=== PATIENT | female | born 1965 | race Caucasian/White ===

== ENCOUNTER 2017-01-05 10:08 | Inpatient (IN) | payer BC ==
[~2017-01-05] VITALS: Ht 160 cm; Wt 78.0 kg
--- NOTE | ~2017-01-05 | EKG ---
PATIENT: OSMEL ZALDIVAR UNIT #: [id number] Ventricular Rate: 97 BPM Atrial Rate: 97 BPM P-R Interval: 130 ms QRS Duration: 80 ms Q-T Interval: 400 ms QTC Calculation(Bezet): 508 ms P [place]: 41 degrees Calculated R [place]: -5 degrees Calculated T [place]: 47 degrees Diagnosis Line: Normal sinus rhythm Diagnosis Line: Prolonged QT Diagnosis Line: Abnormal ECG Diagnosis Line: No previous ECGs available Diagnosis Line: Confirmed by HODAN RIVERA MD ([id number]) on 01/05/2017 Diagnosis Line: 7:40:04 PM INTERPRETING MD: NICOLE CHAIDEZ
--- NOTE | ~2017-01-05 | DS ---
Unit #: [id number] #: [id number] Patient: OSMEL BARKER [id number] [address] [address] [id number] I MR#: [id number] NAME: OSMEL BARKER ROOM: 46 Age: 51 Sex: F Admission Date: 01/05/2017 : 1965 Discharge Date: 01/08/2017 Attending Physician: Debra Paris M.D. Primary Care Physician: Isabela Hsu M.D. DISCHARGE SUMMARY FINAL DIAGNOSIS 1. Intentional drug overdose with benzodiazepine. SECONDARY DIAGNOSES 1. Depression. 2. Diabetes. CONSULTS 1. [facility]. 2. Pulmonary, Dr. Gregg. HOSPITAL COURSE Patient is a 51-year-old female who was admitted on account of intentional drug overdose. She seemed to have overdosed on benzodiazepines. She was intubated and managed in the ICU and seen by critical care. She was seen by (1) . She was eventually extubated, and her respiratory status improved. She was then seen and evaluated for transfer to [facility] inpatient rehab. They did not feel that she was a candidate and was set up for outpatient treatment. MEDICATIONS Medications on discharge include: 1. Brintellix 20 mg p.o. daily. 2. Fluconazole 50 mg p.o. q. every other day. 3. Yuvafem 1 vaginal tablet once a week. 4. Humibid LA 600 mg p.o. twice a day. 5. Multivitamin 1 tablet p.o. daily. 6. Robitussin 1 mL every 6 hours as needed. 7. Farxiga 10 mg p.o. daily. 8. She was offered a pneumonia vaccination prior to discharge. DISCHARGE PLAN She was discharged in stable condition with outpatient followup with psych, as well as her primary care provider, in about 3-5 days. NOTE: Time spent coordinating discharge was about 25 minutes. Dictated by... Masood Patel M.D. JELLY/elmo TD: 01/09/2017 09:48 Unit #: [id number] #: [id number] Patient: OSMEL BARKER JOB #: [id number] DISCHARGE SUMMARY Page 1 of 1 X Masood Patel MD DISCHARGE SUMMARY
--- NOTE | ~2017-01-05 | CR6 ---
[facility] A Service of [facility] RADIOLOGY TEXT RESULTS PATIENT: OSMEL BARKER LOCATION: [address] : [birth year] UNIT #: [id number] AGE: [address]: Lara Kwan MD SEX: F ORDER DR: [id number] [facility] [address] [facility]. [place], [place] [address] [id number] I MR#: [id number] Acc #: [id number] NAME: OSMEL BARKER : 1965 SEX: F STUDY DATE/TIME: 01/05/2017 10:45 UNIT: [facility] ROOM: [facility] STUDY DESCRIPTION: CR Abdomen Portable Sng View Attending Physician: Lara Kwan M.D. Ordering Physician: Yesica López M.D. Primary Care Physician: Isabela Hsu M.D. MEDICAL IMAGING REPORT This report is preliminary unless electronic signature is present EXAM Abdomen, single view; 01/22/2017, 1045 hours. CLINICAL HISTORY Tube placement today, mental status changes suspected overdose in ER requiring intubation. COMPARISON Chest film, 01/05/2017. FINDINGS Single supine view of the abdomen demonstrates a nasogastric tube with tip in the left upper quadrant in the proximal stomach. Bowel gas pattern is unremarkable. There is a calcification overlying the right kidney measuring 10 mm likely an intrarenal nonobstructing stone. IMPRESSION 1. Nasogastric tube tip is in the proximal stomach with the tip directed leftward in the left upper quadrant. Bowel gas pattern is nonspecific. 2. 10 mm calcification overlying the right kidney likely a nonobstructing stone in the lower pole. Dictated by... Aniyah Quinteros M.D. THIS IS AN ELECTRONICALLY VERIFIED REPORT Aniyah Quinteros M.D. at 01/06/2017 9:15 AM ROOPA/kalyn TD: 01/05/2017 16:09 JOB #: [id number] [facility] A Service of [facility] RADIOLOGY TEXT RESULTS PATIENT: OSMEL BARKER LOCATION: [facility] CICCU3-14 : 67 UNIT #: [id number] AGE: [address]: Lara Kwan MD SEX: F ORDER DR: MEDICAL IMAGING REPORT Page 1 of 1 COPY
--- NOTE | ~2017-01-05 | CT71 ---
[facility] A Service of [facility] RADIOLOGY TEXT RESULTS PATIENT: OSMEL BARKER LOCATION: [address] : [birth year] UNIT #: [id number] AGE: [address]: Debra Paris MD SEX: F ORDER DR: [id number] [facility]. [place], [place] [address] [id number] I MR#: [id number] Acc #: [id number] NAME: OSMEL BARKER : 1965 SEX: F STUDY DATE/TIME: 01/05/2017 11:06 UNIT: [facility] ROOM: [facility] STUDY DESCRIPTION: CT Head Wo Contrast Attending Physician: Lara Kwan M.D. Ordering Physician: Yesica López M.D. Primary Care Physician: Isabela Hsu M.D. MEDICAL IMAGING REPORT This report is preliminary unless electronic signature is present EXAM Noncontrast head CT. HISTORY Suspected overdose. Two empty bottles of Xanax at patient's side, respiratory distress, unresponsive. TECHNIQUE This CT exam was performed with one or more of the following radiation dose reduction techniques: automatic exposure control, adjustment of mA and/or kV according to patient size, and iterative reconstruction. FINDINGS Axial noncontrast imaging of the brain demonstrates the brain parenchyma to be normal. No mass, mass effect or midline shift. No hemorrhage or abnormal extraaxial fluid collections. Trace amount calcification seen in the left basal ganglia. Bony calvaria, skull base, mastoids unremarkable. Minimal ethmoid sinus mucosal disease. IMPRESSION No acute intracranial abnormality identified. Dictated by... Renetta Miranda M.D. THIS IS AN ELECTRONICALLY VERIFIED REPORT Renetta Miranda M.D. at 01/06/2017 2:34 PM Gena TD: 01/05/2017 17:23 JOB #: [id number] [facility] A Service of [facility] RADIOLOGY TEXT RESULTS PATIENT: OSMEL BARKER [address] [birth year] UNIT #: [id number] AGE: [address]: Debra Paris MD SEX: F ORDER DR: MEDICAL IMAGING REPORT Page 1 of 1 COPY
--- NOTE | ~2017-01-05 | CO ---
Unit #: [id number] #: [id number] Patient: OSMEL BARKER [id number] [place], [place] [address] [id number] I MR#: [id number] NAME: OSMEL BARKER [facility] Age: 51 Sex: F Admission Date: 01/05/2017 : 1965 Attending Physician: Debra Paris M.D. Primary Care Physician: Jessica Hsu Consultation Date: 01/06/2017 CONSULTATION REPORT REASON FOR CONSULTATION Overdose. HISTORY OF PRESENT ILLNESS Ms. Murrieta is a 51-year-old white female, seen in room CCU-3, bed 14 on 01/06/2017 at [facility]. The patient was admitted after taking an overdose intentional. The patient was admitted in altered mental status. The patient has a history of depression, alcohol abuse. The patient dressed in hospital attire, lying in bed, somewhat uncomfortable, anxious, nervous, unable to give any reliable information. Information obtained from nursing staff, chart reviewed. The patient was able to give some information, but somewhat confused. The patient has a history of depression. The patient's urine tox was positive for benzodiazepine and marijuana, alcohol level negative. PAST PSYCHIATRIC HISTORY Remarkable for history of depression. MEDICAL HISTORY Remarkable for diabetes. MEDICATION HISTORY Trintellix and Farxiga. ALLERGIES No known drug allergies. FAMILY HISTORY AND SOCIAL HISTORY The patient has a good support system. She lives with her . The patient is a daily drinker and has been in rehab in the past. History of use of marijuana. REVIEW OF SYSTEMS Complete review of system is unremarkable except as mentioned above. MENTAL STATUS EXAMINATION The patient's vital signs; pulse 99, respirations 18, blood pressure 119/72, and oxygen saturation 96%. General appearance, the patient dressed casually in hospital attire, somewhat restless, anxious, confused. Attention span and concentration, poor. Speech, slow in volume. Orientation in self. Mood and affect, labile. Thought process, circumstantial. Thought content, guarded, recent suicide attempt by taking overdose. Recent and remote memory, poor. Language, poor. Fund of knowledge, poor. Insight and judgment, impaired. Unit #: [id number] #: [id number] Patient: OSMEL BARKER DIAGNOSES Psychiatric: Major depressive disorder, recurrent, severe, F33.2; delirium, F05; alcohol use disorder, severe, F10.20; cannabis abuse, moderate, F12.20. Secondary diagnosis: Deferred. Medical diagnosis: Please refer to H and P. Stressors: Psychosocial stressors. ASSESSMENT/PLAN Supportive psychotherapy and psychoeducation provided to the patient, but the patient unable to comprehend much at this time. Continue with sitter and one-to-one monitoring. Plan to stabilize the patient and consider transferring the patient to [facility] for inpatient psychiatric treatment. Please feel free to call if any question, telephone #[phone]. Dictated by... Lluvia Lopez/gera TD: 01/06/2017 19:47 JOB #: [id number] CONSULTATION REPORT Page 1 of 1 X Wilner Najera MD X CONSULTATION REPORT
--- NOTE | ~2017-01-05 | CO ---
Unit #: [id number] #: [id number] Patient: NITA BARKER [id number] [address] [address] [id number] I MR#: [id number] NAME: NITA BARKER ROOM: 464 Age: 51 Sex: F Admission Date: 01/05/2017 : 1965 Attending Physician: Debra Paris M.D. Primary Care Physician: Jessica Hsu Consultation Date: 01/08/2017 CONSULTATION REPORT REASON FOR CONSULTATION Followup. DISCUSSION Ms. Nita Barker is a 51-year-old white female, seen in room 464, bed 1 on 01/08/2017 at [facility]. The patient is casually lying comfortably in bed in a propped up position. The patient has a sitter. The patient is still feeling sad, depressed and suicide attempt by taking overdose. The patient is agreeable to go to inpatient treatment at this time [facility] [place] The patient's vital signs; temperature 98.2, pulse 78, respiratory rate 16, blood pressure 107/51, oxygen saturation 96%. REVIEW OF SYSTEMS Complete review of systems is unremarkable. MENTAL STATUS EXAMINATION General appearance, the patient dressed casually, lying comfortably in bed. Attention span and concentration, fair. Speech, regular rate and coherent. Oriented in time, place, and person. Mood and affect, sad and dysphoric. Thought process, goal directed. The patient was somewhat guarded. Able to contract for safety, but passive SI. Denied any homicidal ideation or psychosis. Recent and remote memory, fair. Language, intact. Fund of knowledge, fair. Insight and judgment, fair to slightly impaired. DIAGNOSIS Psychiatric: Major depressive disorder, recurrent, severe, F33.2. ASSESSMENT/PLAN 1. Supportive psychotherapy and psychoeducation provided to the patient. 2. Educated about benefits and side effects of medication and course and prognosis of illness. 3. Advised to continue with current treatment, sitter, and hold and transfer the patient [place] [facility] as soon as the patient is medically stable. Dictated by... Wilner Najera M.D. FARHEEN/gera TD: 01/08/2017 23:07 Unit #: [id number] #: [id number] Patient: NITA BARKER JOB #: [id number] CONSULTATION REPORT Page 1 of 1 X Wilner Naejra MD CONSULTATION REPORT
--- NOTE | ~2017-01-05 | CO ---
Unit #: [id number] #: [id number] Patient: OSMEL BARKER [id number] [facility]. [place], [place] [address] [id number] I MR#: [id number] NAME: OSMEL BARKER ROOM: [facility] Age: 51 Sex: F Admission Date: 01/05/2017 : 1965 Attending Physician: Debra Paris M.D. Primary Care Physician: Isabela Hsu M.D. Consultation Date: 01/07/2017 CONSULTATION REPORT REASON FOR CONSULTATION Followup. DISCUSSION The patient is a 51-year-old white female, seen in CCU-3, bed 14 on 01/07/2017 at [facility]. The patient was more alert, awake, sitting comfortably in a recliner, receiving oxygen, dressed in hospital attire. The patient was pleasant, cooperative, admitted still feeling sad, depressed, and was admitted after intentional overdose. The patient's mood is still sad, depressed, passive SI. Denied any hallucination. The patient is cooperative. Vital signs; temperature 98.6, pulse 101, respiratory rate 20, blood pressure 127/67, oxygen saturation 95%. The patient will be transferred out to a med/surg floor today if continues to do well. REVIEW OF SYSTEMS Complete review of systems is unremarkable. MENTAL STATUS EXAMINATION General appearance, the patient dressed casually in hospital attire, sitting in a recliner. Attention span and concentration, fair. Speech, slow in volume. Oriented in place and person. Mood and affect, sad, dysphoric, flat. Thought process, coherent. Thought content, the patient denied any thoughts of harming others or any hallucination, but passive SI. Recent and remote memory, fair. Language, intact. Fund of knowledge, fair. Insight and judgment, fair to slightly impaired. DIAGNOSES Psychiatric: Major depressive disorder, recurrent, severe; delirium, F05, resolved; alcohol use disorder, severe, F10.20; cannabis abuse, moderate, F12.20. ASSESSMENT/PLAN 1. Supportive psychotherapy and psychoeducation provided to the patient. 2. Educated about benefits and side effects of medication and course and prognosis of illness. 3. Advised to continue with current treatment with a plan to transfer the patient to [facility] [place] [facility] once the patient is medically stable. Continue with the sitter and 72-hour hold. Please feel free to call if any questions, telephone # . Dictated by... Wilner Najera M.D. Unit #: [id number] #: [id number] Patient: OSMEL BARKER FARHEEN/modl TD: 01/08/2017 23:28 JOB #: [id number] CONSULTATION REPORT Page 1 of 1 X Wilner Najera MD X CONSULTATION REPORT
--- NOTE | ~2017-01-05 | HP ---
Unit #: [id number] #: [id number] Patient: OSMEL BARKER [id number] [address] [place], [place] [address] [id number] I MR#: [id number] NAME: OSMEL BARKER ROOM: 41338 Age: 51 Sex: F Admission Date: 01/05/2017 : 1965 Attending Physician: Lara Kwan M.D. Primary Care Physician: Isabela Hsu M.D. HISTORY AND PHYSICAL CHIEF COMPLAINT Altered mental status. HISTORY OF PRESENT ILLNESS The patient is a 51-year-old female with a past medical history of alcohol abuse, depression, diabetes, who presented to the emergency department via EMS for evaluation of the above. History is obtained from chart review and discussion with ER staff, as well as from the patient's who is at bedside. The patient was last seen normal by her in the evening of January 03, 2017. He apparently leaves for work around 4 a.m. and then had other commitments yesterday evening. When he returned home around 9:15, he stated that she was "snoring." He then went to sleep. This morning, he found her unresponsive around 8:00. He states that he is prescribed Xanax 0.5 mg b.i.d. This prescription is kept in a locked container due to the patient's son being a "drug addict." The states that the patient had to have removed the medication from the locked safe and taken it intentionally. He states that she has had depression for 20 years but never had a suicide attempt in the past. She had reportedly called in sick to work on Tuesday and Tuesday. Upon EMS arrival, the patient was nasally intubated for airway protection. She was given 3 mg of Narcan with no response. Upon arrival in the emergency department, she was orotracheally intubated. Pulse was 105, respirations 24, and blood pressure 160/110. A chest x-ray was done and showed a left lobe infiltrate. She was given 2 liters of normal saline, as well as Zosyn and tobramycin. She is currently on propofol drip. She is being admitted to [facility] for evaluation and further treatment. PAST MEDICAL HISTORY 1. Depression with no prior history of suicide attempt. 2. Diabetes. PAST SURGICAL HISTORY Breast reduction. SOCIAL HISTORY The patient lives with her . She is a daily drinker and has been in rehab in the past. She drinks bourbon typically multiple drinks daily. She also smokes marijuana. 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. Unit #: [id number] #: [id number] Patient: OSMEL BARKER FAMILY HISTORY Notable for her mother having COPD. ALLERGIES No known allergies. HOME MEDICATIONS 1. Trintellix. 2. Farxiga. Home medications will need to be reviewed and verified. REVIEW OF SYSTEMS A complete review of systems is unobtainable from the patient but negative except as indicated in the HPI per family. PHYSICAL EXAMINATION VITAL SIGNS: Temperature is 97.7, pulse 105, respirations 24, blood pressure 160/110, oxygen saturation 100%. GENERAL: The patient is currently intubated and sedated. HEENT: Head is atraumatic. Mucous membranes are moist. NECK: Supple. Trachea is midline. CARDIOVASCULAR: Regular rate and rhythm. LUNGS: Scattered rhonchi. ABDOMEN: Soft with bowel sounds present in all four quadrants. EXTREMITIES: No pedal edema. NEUROLOGIC: The patient is currently sedated. PSYCHIATRIC: Unable to assess. SKIN: Skin of examined areas is warm and dry. DIAGNOSTIC STUDIES LABORATORY: Arterial blood gas shows a pH of 7.283, PCO2 of 44.3, and PO2 of 83.4 on assist control with an FIO2 of 75%. INR is 1.2. Complete blood count notable for hemoglobin and hematocrit of 11.1 and 36.3, respectively, MCV is 71, and RDW is 21.5. Troponin is less than 0.05. Urinalysis notable for greater than 1000 glucose and trace ketones. Lactic acid 2.1. Comprehensive metabolic panel notable for a glucose of 159, AST and ALT are 169 and 127, respectively, alkaline phosphatase 137. CPK is 520. Magnesium is 2. Tylenol, salicylate, and alcohol levels are negative. Urine tox screen is positive for benzodiazepines and marijuana. TSH is 0.42. IMAGING: Chest x-ray shows left lower lobe infiltrate. Abdominal x-ray shows NG tube in the proximal stomach. CT of the head shows nothing acute. CARDIOLOGY: EKG shows normal sinus rhythm with a rate of 97 beats per minute. ASSESSMENT The patient is a 51-year-old female with: 1. Intentional overdose, Xanax. The bottle contained 60 pills. It is unclear how many she actually took. 2. Aspiration pneumonia. The patient received Zosyn and tobramycin in the emergency department. 3. Sepsis with initial lactic acid of 2.1. 4. Early rhabdomyolysis with a CPK of 520. 5. Transaminitis with AST and ALT of 169 and 127, respectively. 6. Alcohol abuse with history of daily drinking. Unit #: [id number] #: [id number] Patient: OSMEL BARKER 7. Microcytic anemia. The patient's hemoglobin is 11.1 with no baseline for comparison. 8. Depression. 9. Diabetes. PLAN 1. Admit to ICU. 2. N.p.o. 3. 72-hour hold and sitter when/if extubated/awake. 4. Consult Dr. Najera regarding intentional overdose. 5. Blood cultures x2. 6. Sputum culture and sensitivity. 7. Procalcitonin level. 8. Sepsis protocol. 9. Consult Dr. Piter Luke regarding ICU and vent management. 10. DuoNebs q.4 hours. 11. Alcohol withdrawal protocol to start now. 12. Hemoglobin A1c. 13. Low-dose sliding scale insulin with Accu-Cheks. 14. Propofol drip per sedation protocol. 15. Serial cardiac enzymes. 16. Protonix for GI prophylaxis. 17. SCDs for DVT prophylaxis. 18. Repeat labs in the morning including CPK. Thirty-five (35) minutes critical care time spent in the care of this patient (12:05 to 12:40 p.m.). Dictated by Lluvia Patrick/yessica TD: 01/05/2017 15:05 JOB #: [id number] HISTORY AND PHYSICAL Page 1 of 1 X Lara Kwan MD HISTORY AND PHYSICAL
--- NOTE | ~2017-01-05 | CO ---
Unit #: [id number] #: [id number] Patient: OSMEL BARKER [id number] [address] [address] [id number] I MR#: [id number] NAME: OSMEL BARKER ROOM: [facility] Age: 51 Sex: F Admission Date: 01/05/2017 : 1965 Attending Physician: Debra Paris M.D. Primary Care Physician: Isabela Hsu M.D. Consultation Date: 01/05/2017 CONSULTATION REPORT REASON FOR CONSULT ICU management. HISTORY OF PRESENT ILLNESS This is a 51-year-old female with past medical history significant for depression, diabetes, alcohol abuse who presented to the emergency room for evaluation of altered mental status and drug overdose. Patient's has stated that when he left to work, she was doing okay; however, when he came back, she was sleeping deeply and she was snoring. Patient was unresponsive and not following commands. Apparently patient had never had suicidal attempt in the past. PAST MEDICAL HISTORY 1. Depression. 2. Diabetes. 3. Morbid obesity. PAST SURGICAL HISTORY 1. Breast reduction. SOCIAL HISTORY Patient lives with her . She is a daily drinker and has been in rehab in the past. She drinks bourbon (1) multiple drinks daily. She also smokes marijuana. FAMILY HISTORY COPD. ALLERGY No known drug allergy. HOME MEDICATION 1. Trintellix. 2. Farxiga. REVIEW OF SYSTEMS Unable to obtain due to patient condition. PHYSICAL EXAMINATION VITAL SIGNS: Temperature 98.1, heart rate 96, respiratory rate 20, O2 saturation 98%. HEENT: Atraumatic, normocephalic. PERRLA, EOMI. NECK: Supple. No JVD. No lymphadenopathy. Unit #: [id number] #: [id number] Patient: OSMEL BARKER CHEST: Clear to auscultation bilaterally. HEART: S1, S2. No murmur, gallops or rubs. ABDOMEN: Soft, nontender. Bowel sound is positive. No hepatosplenomegaly. EXTREMITIES: No edema or cyanosis. SKIN: No rashes. RING ATTACHER: Patient is intubated with propofol as sedation. She is withdrawing to painful stimuli, and she has a gag and cough reflexes. LABS AND OTHER TESTS LABS: Creatinine 0.5, potassium 3.1, CO2 23. White blood count 9.0, hemoglobin 10.4. ASSESSMENT 1. Acute hypoxic respiratory failure. 2. Drug overdose. 3. Altered mental status. 4. Chronic anemia. 5. Morbid obesity. 6. Diabetes. PLAN 1. Patient will be continued on the vent with attempt for spontaneous breathing trial as soon as she is more awake. 2. IV hydration with close monitoring of urine output and lactic acid. 3. Zosyn for possible aspiration pneumonia but hopefully will deescalate as soon as we get culture and procalcitonin back. 4. Sliding scale and blood sugar management. 5. DVT/GI prophylaxis. 6. Discussed with the family prognosis and what to expect for the next 24 hours. NOTE: I would like to thank you for allowing me to be part of this patient's care. Dictated by... Lluvia Ahmadi TD: 01/07/2017 07:49 JOB #: [id number] CONSULTATION REPORT Page 1 of 1 X LAKSHMI VILLA MD X CONSULTATION REPORT
--- NOTE | ~2017-01-05 | CR72 ---
[facility] A Service of [facility] & [facility] RADIOLOGY TEXT RESULTS PATIENT: OSMEL BARKER LOCATION: [address] : [birth year] UNIT #: [id number] AGE: [address]: Debra Paris MD SEX: F ORDER DR: [id number] [facility] [address] [place], [place] [address] [id number] MR#: [id number] #: [id number] NAME: OSMEL BARKER : 1965 SEX: F STUDY DATE/TIME: 01/05/2017 10:47 UNIT: [facility] ROOM: [facility] STUDY DESCRIPTION: CR Chest Single View Portable Attending Physician: Lara Kwan M.D. Ordering Physician: Yesica López M.D. Primary Care Physician: Isabela Hsu M.D. MEDICAL IMAGING REPORT This report is preliminary unless electronic signature is present EXAM Single view of the chest dated 01/05/2017. COMPARISON None. HISTORY Dobbhoff tube placement, intubation today. Suspected overdose. FINDINGS Single view of the chest was obtained. Tip of the endotracheal tube is about 1.2 cm from the julia. NG tube tip is in the region of the mid body of the stomach. Poor inspiratory film with patchy alveolar infiltrate in the lateral left lower lung zone. Minimal associated left-sided pleural fluid cannot be excluded. No pneumothorax. Heart and bones are unremarkable. Dictated by... Ba Garcia M.D. THIS IS AN ELECTRONICALLY VERIFIED REPORT Ba Garcia M.D. at 01/06/2017 2:50 PM CPR/gz TD: 01/05/2017 15:59 JOB #: [id number] MEDICAL IMAGING REPORT Page 1 of 1 COPY
[2017-01-05 10:53] LABS: ARTERIAL BLD GAS O2 SATURATION 93.1 % (90.0-100.0); ARTERIAL BLOOD GAS CARBOXY HB 1.1 %sat (0.0-9.0); ARTERIAL BLOOD GAS HCO3 20.9 mmol/L; ARTERIAL BLOOD GAS MET HB 0.9 %sat (0.0-2.0); ARTERIAL BLOOD GAS PCO2 44.3 mmHg (35.0-45.0); ARTERIAL BLOOD GAS PO2 83.4 mmHg (80.0-100); ARTERIAL BLOOD GAS pH 7.283 (7.350-7.450)
[2017-01-05 10:54] LABS: ARTERIAL BLOOD GAS ART SITE LEFT RADIAL; ARTERIAL BLOOD GAS DELIVERY VENT; ARTERIAL BLOOD GAS VENT MODE AC; ARTERIAL DRAW? YES
[2017-01-05 11:00] LABS: BASOPHIL# 0.1 X10e3 (0-0.3); BASOPHIL% 0.9 % (0-2.5); DIFF IND NO; EOSINOPHIL% 0.2 % (0.0-7.0); HEMATOCRIT 36.3 % (35.0-45.0); HEMOGLOBIN 11.1 gm/dL (12.0-16.0); INR 1.2; LYMPHOCYTE# 1.7 X10e3 (1.0-3.5); LYMPHOCYTE% 20.1 % (17.0-45.0); MEAN CORPUSCULAR HEMOGLOBIN 21.8 PG (28-34); MEAN CORPUSCULAR HGB CONC 30.7 g/dL (30-36); MEAN PLATELET VOLUME 8.5 FL (6.5-11.5); MONOCYTE# 0.4 X10e3 (0-1.0); MONOCYTE% 4.9 % (3.0-12.0); NEUTROPHIL# 6.1 X10e3 (1.5-7.1); NEUTROPHIL% 73.9 % (40-75); PARTIAL THROMBOPLASTIN TIME 23.8 SECONDS (23.5-31.3); PLATELET COUNT 242 X10e3 (140-420); PROTHROMBIN TIME (PATIENT) 12.6 SECONDS (10.0-11.7); RED BLOOD COUNT 5.11 X10e (3.90-5.30); RED CELL DISTRIBUTION WIDTH 21.5 % (11.0-15.5); WHITE BLOOD COUNT 8.3 X10e3 (4.0-10.5)
[2017-01-05 11:01] LABS: URINE SOURCE CATH
[2017-01-05 11:03] LABS: POC - TROPONIN <0.05 ng/mL (<=0.05)
[2017-01-05 11:06] LABS: URINE APPEARANCE CLEAR; URINE BILIRUBIN NEG (NEG); URINE BLOOD NEG (NEG); URINE COLOR YELLOW; URINE GLUCOSE >1000 MG/DL (NEG); URINE KETONE TRACE (NEG); URINE LEUKOCYTE ESTERASE NEG (NEG); URINE NITRATE NEG (NEG); URINE PH 5.5 (5-8); URINE PROTEIN NEG (NEG); URINE UROBILINOGEN 0.2 MG/DL (NEG)
[2017-01-05 11:11] LABS: CULTURE INDICATED? NO
[2017-01-05 11:12] LABS: ACETAMINOPHEN <10 ug/mL; ALBUMIN SERUM 4.1 g/dL (3.5-5.0); ALCOHOL BLOOD <5 mg/dL (0); ALKALINE PHOSPHATASE 137 U/L (32-92); ALT (SGPT) 127 U/L (10-40); AST (SGOT) 169 U/L (10-42); BILIRUBIN, DIRECT 0.1 mg/dL (0.0-0.2); BILIRUBIN,INDIRECT 0.7 mg/dL (0.0-0.9); BILIRUBIN,TOTAL 0.8 mg/dL (0.2-2.0); BLOOD UREA NITROGEN 11 mg/dL (9-23); BUN/CREATININE RATIO 15.71; CALCIUM SERUM 8.6 mg/dL (8.4-10.2); CARBON DIOXIDE 22 mmol/L (22-31); CHLORIDE 109 mmol/L (100-111); CPK (CREATINE PHOSPHOKINASE) 520 IU/L (26-140); CREATININE SERUM 0.7 mg/dL (0.6-1.4); GLUCOSE FASTING 159 mg/dL (70-110); POTASSIUM 3.6 mmol/L (3.5-5.1); PROTEIN TOTAL SERUM 7.8 g/dL (6.0-8.3); SALICYLATE <4.0 mg/dL; SODIUM 141 mmol/L (135-145)
[2017-01-05 11:16] LABS: AMPHETAMINE NEG (NEG); BARBITURATES NEG (NEG); BENZODIAZEPINES POS (NEG); COCAINE NEG (NEG); MARIJUANA POS (NEG); OPIATES NEG (NEG); TRICYCLIC ANTIDEPRESSANTS NEG (NEG); U METHADONE NEG (NEG)
[2017-01-05] MEDS ORDERED: PATIENT'S PHARMACY (12:36)
[2017-01-05] MEDS ORDERED: AMOXICILLIN PO (12:37)
[2017-01-05] MEDS ORDERED: BRINTELLIX20 MG PO (12:37)
[2017-01-05 12:38] LABS: POC - CKMB 3.6 ng/mL (0.0-7.9); POC - TROPONIN <0.05 ng/mL (<=0.05)
[2017-01-05] MEDS ORDERED: YUVAFEM10 MCG VAG (12:38)
[2017-01-05] MEDS ORDERED: FARXIGA10 MG PO (12:38)
[2017-01-05] MEDS ORDERED: FLUCONAZOLE150 M1 PO (12:39)
[2017-01-05 13:27] LABS: MAGNESIUM 2.1 mg/dL (1.6-3.0)
[2017-01-05 14:22] LABS: PROCALCITONIN <0.05 NG/ML
[2017-01-05 19:18] LABS: %MB 0.7 % (0.0-4.0); MB 3.8 ng/ml
[2017-01-06 01:15] LABS: %MB 0.7 % (0.0-4.0); MB 2.7 ng/ml
[2017-01-06 05:17] LABS: BASOPHIL% 0.5 % (0-2.5); EOSINOPHIL# 0.1 X10e3 (0-0.7); EOSINOPHIL% 0.9 % (0.0-7.0); HEMATOCRIT 34.1 % (35.0-45.0); HEMOGLOBIN 10.4 gm/dL (12.0-16.0); LYMPHOCYTE# 2.3 X10e3 (1.0-3.5); LYMPHOCYTE% 25.8 % (17.0-45.0); MEAN CORPUSCULAR HEMOGLOBIN 21.7 PG (28-34); MEAN CORPUSCULAR HGB CONC 30.6 g/dL (30-36); MEAN PLATELET VOLUME 8.7 FL (6.5-11.5); MONOCYTE# 0.9 X10e3 (0-1.0); MONOCYTE% 9.4 % (3.0-12.0); NEUTROPHIL# 5.7 X10e3 (1.5-7.1); NEUTROPHIL% 63.4 % (40-75); PLATELET COUNT 185 X10e3 (140-420); RED CELL DISTRIBUTION WIDTH 21.5 % (11.0-15.5)
[2017-01-06 05:25] LABS: DIFF IND NO
[2017-01-06 06:52] LABS: ALBUMIN SERUM 3.3 g/dL (3.5-5.0); BILIRUBIN,TOTAL 0.9 mg/dL (0.2-2.0); CALCIUM SERUM 7.8 mg/dL (8.4-10.2); CREATININE SERUM 0.5 mg/dL (0.6-1.4); GLOM FILT RATE Estimated 112.9 mL/min (>60); MAGNESIUM 1.7 mg/dL (1.6-3.0); POTASSIUM 3.4 mmol/L (3.5-5.1); PROTEIN TOTAL SERUM 6.5 g/dL (6.0-8.3)
[2017-01-07 05:47] LABS: BASOPHIL# 0.1 X10e3 (0-0.3); BASOPHIL% 0.8 % (0-2.5); EOSINOPHIL# 0.3 X10e3 (0-0.7); HEMOGLOBIN 9.3 gm/dL (12.0-16.0); LYMPHOCYTE# 2.6 X10e3 (1.0-3.5); LYMPHOCYTE% 38.6 % (17.0-45.0); MEAN CELL VOLUME 70.9 FL (83-96); MEAN CORPUSCULAR HEMOGLOBIN 21.4 PG (28-34); MEAN CORPUSCULAR HGB CONC 30.1 g/dL (30-36); MEAN PLATELET VOLUME 8.6 FL (6.5-11.5); MONOCYTE# 0.5 X10e3 (0-1.0); MONOCYTE% 6.8 % (3.0-12.0); NEUTROPHIL# 3.3 X10e3 (1.5-7.1); NEUTROPHIL% 49.8 % (40-75); PLATELET COUNT 181 X10e3 (140-420); RED BLOOD COUNT 4.37 X10e (3.90-5.30); RED CELL DISTRIBUTION WIDTH 21.1 % (11.0-15.5); WHITE BLOOD COUNT 6.7 X10e3 (4.0-10.5)
[2017-01-07 05:50] LABS: DIFF IND NO
[2017-01-07 06:10] LABS: CALCIUM SERUM 7.5 mg/dL (8.4-10.2); CARBON DIOXIDE 24 mmol/L (22-31); CHLORIDE 106 mmol/L (100-111); CREATININE SERUM 0.5 mg/dL (0.6-1.4); GLOM FILT RATE Estimated 112.9 mL/min (>60); GLUCOSE FASTING 154 mg/dL (70-110); SODIUM 133 mmol/L (135-145)
[2017-01-07 06:12] LABS: BLOOD UREA NITROGEN <5 mg/dL (9-23)
[2017-01-07 06:13] LABS: ALBUMIN SERUM 3.1 g/dL (3.5-5.0); BILIRUBIN, DIRECT 0.3 mg/dL (0.0-0.2); BILIRUBIN,INDIRECT 0.8 mg/dL (0.0-0.9); BILIRUBIN,TOTAL 1.1 mg/dL (0.2-2.0); POTASSIUM 2.9 mmol/L (3.5-5.1); PROTEIN TOTAL SERUM 5.9 g/dL (6.0-8.3)
[2017-01-08 00:09] LABS: MAGNESIUM 1.7 mg/dL (1.6-3.0); POTASSIUM 3.5 mmol/L (3.5-5.1)
[2017-01-08] MEDS ORDERED: HUMIBID-LA600 MG PO (18:07)
[2017-01-08] MEDS ORDERED: TYLENOL325 M1 PO (18:07)
[2017-01-08] MEDS ORDERED: ROBITUSSIN LON118 ML PO (18:09)
== END 2017-01-08 19:05 | disposition home or self-care (01) | DRG 917 ==
LOC: CED 10:08 → CICCU3 12:40 → CEDOF 12:40 → CED 12:55 → CICCU3 15:35 → CEDOF 15:35 → CICCU3 01-06 12:49 → C4C 01-07 14:53
PROVIDERS: Emergency Medicine; Family Medicine; Internal Medicine; Internal Medicine Pulmonary Disease
PROC: 0BH17EZ Insertion of Endotracheal Airway into Trachea, Via Natural or Artificial Opening (ICD-10-PCS; principal; 2017-01-05)
PROC: 5A1935Z Respiratory Ventilation, Less than 24 Consecutive Hours (ICD-10-PCS; 2017-01-05)
PROC: 3E0234Z Introduction of Serum, Toxoid and Vaccine into Muscle, Percutaneous Approach (ICD-10-PCS; 2017-01-05)
DX: T42.4X2A Poisoning by benzodiazepines, intentional self-harm, initial encounter (principal); J69.0 Pneumonitis due to inhalation of food and vomit; A41.9 Sepsis, unspecified organism; G92 Toxic encephalopathy; F33.2 Major depressive disorder, recurrent severe without psychotic features; E44.0 Moderate protein-calorie malnutrition; F05 Delirium due to known physiological condition; M62.82 Rhabdomyolysis; E11.9 Type 2 diabetes mellitus without complications; D64.9 Anemia, unspecified; F10.20 Alcohol dependence, uncomplicated; Z79.84 Long term (current) use of oral hypoglycemic drugs; F12.20 Cannabis dependence, uncomplicated; R74.0 Nonspecific elevation of levels of transaminase and lactic acid dehydrogenase [LDH]; Z23 Encounter for immunization; E87.6 Hypokalemia; J20.9 Acute bronchitis, unspecified
CPT/HCPCS: 36415; 36600; 70450; 71010; 74000; 80048; 80053; 80076; 80307; 81003; 82308; 82550; 82553; 82803; 82947; 83036; 83605; 83735; 84132; 84443; 84484; 85025; 85610; 85730; 87040; 87070; 87205; 90732; 92610; 93005; 94002; 94003; 94640; 94760; 96361; 96365; 96375; 99291; C9113; G0009; G0480; G8996-GN; G8997-GN; G8998-GN; J1650; J1815; J2060; J2543; J3260; J3411; J3475; J7042